=== PATIENT | male | born 1970 | race Caucasian/White ===

== ENCOUNTER 2018-06-30 05:51 | Emergency (ER) | payer OTHER ==
[2018-06-30] MEDS ORDERED: Adenosine 6 MG/2 ML SDV ONE (06:04)
[2018-06-30] MEDS ORDERED: Adenosine 12 MG/4 ML SDV ONE (06:04)
[2018-06-30] MEDS ORDERED: Adenosine 6 MG/2 ML SDV IVPUSH ONE (06:05)
[2018-06-30] MEDS ORDERED: Sodium Chloride 0.9% 1,000 ML IV ONE (06:16)
[2018-06-30] MEDS ORDERED: Metoprolol Tartrate 5 MG/5 ML SDV IVPUSH ONE ×3 (06:17→06:49)
[2018-06-30] MEDS ORDERED: Metoprolol Tartrate 5 MG/5 ML SDV ONE (06:19)
--- NOTE | 2018-06-30 06:23 | EDM.PDOC ---
<Raul Christy - Last Filed: 06/30/18 06:50> ED HPI GENERAL MEDICAL PROBLEM - General Chief Complaint: Cardiovascular Problem Stated Complaint: CHEST PAIN Time Seen by Provider: 06/30/18 06:15 Source of Information: Reports: Patient, Family History Limitations: Reports: No Limitations - History of Present Illness INITIAL COMMENTS - FREE TEXT/NARRATIVE: Patient presents with acute onset of palpitations. He had been out camping and had 4 beers last night but had also a lot of some caffeinated drinks. He woke up this morning at about midnight with palpitations. Naylor some shortness of breath when it occurred. No syncope or near-syncope. He denies any chest pain associated with it. No nausea or vomiting. The events of the palpitations would come and go. On arrival here to the department his heart rate was 240 and regular with narrow complexes. Patient blood pressure was stable and is alert and oriented 3. He denies any history of any diabetes heart problems heart murmur when he was a child or rheumatic fever. He denies illegal drug use, he does smoke cigarettes. - Related Data Allergies Allergy/AdvReac Type Severity Reaction Status Date / Time No Known Allergies Allergy Verified 06/30/18 06:06 Home Meds: Home Meds Metoprolol Succinate 25 mg PO DAILY #30 tab.er.24h 06/30/18 [Rx] Past Medical History - Past Surgical History Musculoskeletal Surgical History: Reports: Arthroscopic Knee Social & Family History - Family History Family Medical History: Noncontributory ED ROS GENERAL - Review of Systems Review Of Systems: See Below Constitutional: Reports: Diaphoresis. Denies: Fever, Chills Respiratory: Reports: Shortness of Breath. Denies: Cough Cardiovascular: Reports: Palpitations. Denies: Chest Pain, Lightheadedness GI/Abdominal: Denies: Abdominal Pain, Nausea, Vomiting Musculoskeletal: Denies: Neck Pain Neurological: Denies: Dizziness, Headache, Syncope Psychiatric: Denies: Agitation, Anxiety ED EXAM, GENERAL - Physical Exam Exam: See Below Exam Limited By: No Limitations General Appearance: Alert, WD/WN, Anxious, Mild Distress Head: Atraumatic Neck: Supple, Non-Tender. No: Carotid Bruit Respiratory/Chest: No Respiratory Distress, Lungs Clear, Normal Breath Sounds, Chest Non-Tender Cardiovascular: Normal Peripheral Pulses, No Edema, No JVD, Other (Tachycardia) GI/Abdominal: Normal Bowel Sounds, Soft, Non-Tender Extremities: Normal Inspection, No Pedal Edema Neurological: Alert, Oriented Psychiatric: Normal Affect, Normal Mood Skin Exam: Diaphoretic EKG INTERPRETATION EKG Date: 06/30/18 EKG Interpretation Comments: Initial EKG on patient's arrival shows a supraventricular tachycardia rate of 238. Baseline artifact ever noted he does have an RSR prime in lead V1, suspect some rate related depression ST depression noted in the anterior leads. Course - Vital Signs Text/Narrative:: Patient with a narrow complex tachycardia suspect supraventricular tachycardia. Initially performed vagal maneuvers and was able to get his heart rate down to 70. This probably lasted for a few minutes and we were not able to get a new lecture cardiogram. We reviewed the risks benefits alternatives to chemical cardioversion with the patient and he agreed and we gave him 6 mg of IV adenosine. We were able again to convert him to a normal sinus rhythm however this was short-lived and he is now back in a tachycardia. We'll load given a dose of metoprolol 5 mg IV. Check a chest x-ray, troponin BNP baseline labs including electrolytes. Bolus with some fluids. His blood pressure post cardioversion was 110 systolic. At this point patient does still remain stable however we'll consider whether cardioversion is indicated. I'll the onset of symptoms being at night. He denies having had anything like this in the past. Last Recorded V/S: Last Vital Signs Temp 95.5 F 06/30/18 05:59 Pulse 81 06/30/18 08:42 Resp 16 06/30/18 08:35 BP 112/67 06/30/18 08:42 Pulse Ox 99 06/30/18 08:35 - Orders/Labs/Meds Orders: Active Orders 24 hr Category Date Time Status Cardiac Monitoring [RC] . DIRECTED Care 06/30/18 06:16 Active EKG Documentation Completion [RC] ASDIRECTED Care 06/30/18 07:06 Active EKG Documentation Completion [RC] STAT Care 06/30/18 06:16 Active Chest 1V Frontal [CR] Stat Exams 06/30/18 06:16 Taken Chest PE [Ang Chest] [CT] Stat Exams 06/30/18 06:55 Taken EKG 12 Lead [EK] Stat Ther 06/30/18 06:14 Ordered Labs: Laboratory Tests 06/30/18 06/30/18 06/30/18 Range/Units 06:05 06:05 06:05 WBC 15.64 H (4.23-9.07) K/mm3 RBC 5.67 (4.63-6.08) M/mm3 Hgb 17.3 (13.7-17.5) gm/L Hct 49.9 (40.1-51.0) % MCV 88.0 (79.0-92.2) fl MCH 30.5 (25.7-32.2) pg MCHC 34.7 (32.2-35.5) g/dl RDW Std Deviation 41.7 (35.1-43.9) fL Plt Count 294 (163-337) K/mm3 MPV 10.4 (9.4-12.3) fl Neut % (Auto) 64.1 (34.0-67.9) % Lymph % (Auto) 26.5 (21.8-53.1) % [place] % (Auto) 7.0 (5.3-12.2) % Eos % (Auto) 1.7 (0.8-7.0) Baso % (Auto) 0.3 (0.1-1.2) % Neut # (Auto) 10.03 H (1.78-5.38) K/mm3 Lymph # (Auto) 4.15 H (1.32-3.57) K/mm3 [place] # (Auto) 1.09 H (0.30-0.82) K/mm3 Eos # (Auto) 0.26 (0.04-0.54) K/mm3 Baso # (Auto) 0.05 (0.01-0.08) K/mm3 Sodium 142 (136-145) mEq/L Potassium 4.1 (3.5-5.1) mEq/L Chloride 107 (98-107) mEq/L Carbon Dioxide 25 (21-32) mEq/L Anion Gap 14.1 (5-15) BUN 17 (7-18) mg/dL Creatinine 1.0 (0.7-1.3) mg/dL Est Cr Clr Drug Dosing 91.32 mL/min Estimated GFR (MDRD) > 60 (>60) mL/min BUN/Creatinine Ratio 17.0 (14-18) Glucose 126 H (74-106) mg/dL Calcium 8.7 (8.5-10.1) mg/dL Magnesium 1.8 (1.8-2.4) mg/dl Total Bilirubin 0.4 (0.2-1.0) mg/dL AST 26 (15-37) U/L ALT 54 (16-63) U/L Alkaline Phosphatase 86 (46-116) U/L Troponin I < 0.017 (0.00-0.056) ng/mL NT-Pro-B Natriuret Pep 417 H (0-125) pg/mL Total Protein 6.8 (6.4-8.2) g/dl Albumin 3.6 (3.4-5.0) g/dl Globulin 3.2 gm/dL Albumin/Globulin Ratio 1.1 (1-2) TSH 3rd Generation (0.358-3.74) uIU/mL 06/30/18 Range/Units 06:05 WBC (4.23-9.07) K/mm3 RBC (4.63-6.08) M/mm3 Hgb (13.7-17.5) gm/L Hct (40.1-51.0) % MCV (79.0-92.2) fl MCH (25.7-32.2) pg MCHC (32.2-35.5) g/dl RDW Std Deviation (35.1-43.9) fL Plt Count (163-337) K/mm3 MPV (9.4-12.3) fl Neut % (Auto) (34.0-67.9) % Lymph % (Auto) (21.8-53.1) % [place] % (Auto) (5.3-12.2) % Eos % (Auto) (0.8-7.0) Baso % (Auto) (0.1-1.2) % Neut # (Auto) (1.78-5.38) K/mm3 Lymph # (Auto) (1.32-3.57) K/mm3 [place] # (Auto) (0.30-0.82) K/mm3 Eos # (Auto) (0.04-0.54) K/mm3 Baso # (Auto) (0.01-0.08) K/mm3 Sodium (136-145) mEq/L Potassium (3.5-5.1) mEq/L Chloride (98-107) mEq/L Carbon Dioxide (21-32) mEq/L Anion Gap (5-15) BUN (7-18) mg/dL Creatinine (0.7-1.3) mg/dL Est Cr Clr Drug Dosing mL/min Estimated GFR (MDRD) (>60) mL/min BUN/Creatinine Ratio (14-18) Glucose (74-106) mg/dL Calcium (8.5-10.1) mg/dL Magnesium (1.8-2.4) mg/dl Total Bilirubin (0.2-1.0) mg/dL AST (15-37) U/L ALT (16-63) U/L Alkaline Phosphatase (46-116) U/L Troponin I (0.00-0.056) ng/mL NT-Pro-B Natriuret Pep (0-125) pg/mL Total Protein (6.4-8.2) g/dl Albumin (3.4-5.0) g/dl Globulin gm/dL Albumin/Globulin Ratio (1-2) TSH 3rd Generation 2.915 (0.358-3.74) uIU/mL Meds: Medications Discontinued Medications Generic Name Dose Route Start Last Admin Trade Name Freq PRN Reason Stop Dose Admin Adenosine Confirm 06/30/18 06:04 06/30/18 06:36 Adenocard Administered 06/30/18 06:05 Not Given Dose 6 mg .ROUTE .STK-MED ONE Adenosine Confirm 06/30/18 06:04 06/30/18 06:36 Adenocard Administered 06/30/18 06:05 Not Given Dose 12 mg .ROUTE .STK-MED ONE Adenosine 6 mg 06/30/18 06:05 06/30/18 06:10 Adenocard IVPUSH 06/30/18 06:06 6 mg NOW ONE Administration Sodium Chloride 1,000 mls @ 500 mls/hr 06/30/18 06:16 06/30/18 06:26 Normal Saline IV 06/30/18 08:15 500 mls/hr ONETIME ONE Administration Sodium Chloride 100 mls @ 60 mls/hr 06/30/18 07:30 06/30/18 07:29 Normal Saline IV 60 mls/hr ASDIRECTED JULI Administration Iopamidol 100 ml 06/30/18 07:26 06/30/18 07:29 Isovue-370 (76%) IVPUSH 06/30/18 07:27 100 ml ONETIME ONE Administration Metoprolol Tartrate 5 mg 06/30/18 06:17 06/30/18 06:23 Lopressor IVPUSH 06/30/18 06:18 5 mg ONETIME ONE Administration Metoprolol Tartrate Confirm 06/30/18 06:19 06/30/18 06:36 Lopressor Administered 06/30/18 06:20 Not Given Dose 5 mg .ROUTE .STK-MED ONE Metoprolol Tartrate 25 mg 06/30/18 06:29 06/30/18 06:38 Lopressor PO 06/30/18 06:30 Not Given ONETIME ONE Metoprolol Tartrate 5 mg 06/30/18 06:30 06/30/18 06:37 Lopressor IVPUSH 06/30/18 06:31 5 mg ONETIME ONE Administration Metoprolol Tartrate 25 mg 06/30/18 06:33 06/30/18 06:38 Lopressor PO 06/30/18 06:34 25 mg ONETIME ONE Administration Metoprolol Tartrate Confirm 06/30/18 06:32 06/30/18 06:37 Lopressor Administered 06/30/18 06:33 Not Given Dose 50 mg .ROUTE .STK-MED ONE Metoprolol Tartrate 5 mg 06/30/18 06:49 06/30/18 08:42 Lopressor IVPUSH 06/30/18 06:50 Not Given ONETIME ONE Sodium Chloride 10 ml 06/30/18 07:26 06/30/18 07:29 Saline Flush FLUSH 06/30/18 07:27 10 ml ONETIME ONE Administration - Re-Assessments/Exams Free Text/Narrative Re-Assessment/Exam: 06/30/18 06:51 Recheck evaluation these metoprolol 5 mg dose does seem to control his rate only however for short period of time. Have given him a dose of Lopressor 25 mg oral. Have now repeated a third dose of metoprolol 5 mg IV. He does show some borderline Chilo megaly and his chest x-ray, Celexa lites otherwise are normal , troponin negative, BNP is pending. Do not see any signs of acute heart failure. TSH is pending. We'll send him for CT chest angiogram rule out PE. He is not currently hypoxic or short of breath however recurrence of this supraventricular rhythm. Departure - Departure Disposition: Home, Self-Care 01 Preliminary Cause of *Q: Sepsis & Multi System Organ Failure Condition: Serious Clinical Impression: Supraventricular tachycardia, paroxysmal Prescriptions: Metoprolol Succinate 25 mg PO DAILY #30 tab.er.24h Instructions: Supraventricular Tachycardia, Adult Referrals: PCP,None [Primary Care Provider] - Lindsay Hood PA [[employer]] - 1 Week Forms: ED Department Discharge Additional Instructions: Take the metoprolol daily. You can start tomorrow. Avoid all stimulants such as caffeine or nicotine. Drink plenty of water. Try to get some rest today. Follow up with a doctor in [place] or you can follow up with Lindsay Hood in our clinic. Please return if you are worse. <Cam Adam - Last Filed: 06/30/18 13:56> ED ROS GENERAL - Review of Systems Review Of Systems: See Below ED EXAM, GENERAL - Physical Exam Exam: See Below Course - Re-Assessments/Exams Free Text/Narrative Re-Assessment/Exam: 06/30/18 08:[address] Christy. The patient's WBC was elevated at 15.64. His glucose was 126. his troponin was negative. His BNP was slightly elevated at 417. His TSH was normal. His chest angio showed no PE. He had pulmonary vascular congestion, interstitial pulmonary edema, fatty infiltration of the liver, and minimal pleural effusion. It appears he may have had some pulmonary edema and fluid from such a fast heart rate. I will need to get him on some metoprolol and have him avoid all stimulants such as caffeine and nicotine. Departure - Departure Time of Disposition: 08:30 Condition: Good
[2018-06-30] MEDS ORDERED: Metoprolol Tartrate 25 MG Tab PO ONE (06:29)
[2018-06-30] MEDS ORDERED: Metoprolol Tartrate 50 MG Tab ONE (06:32)
[2018-06-30] MEDS ORDERED: Metoprolol Tartrate 50 MG Tab PO ONE (06:33)
[2018-06-30] MEDS ORDERED: Sodium Chloride 0.9% 10 ML Syringe FLUSH ONE (07:26)
[2018-06-30] MEDS ORDERED: Iopamidol 755 Mg/ML 100 ML Bottle IVPUSH ONE (07:26)
[2018-06-30] MEDS ORDERED: Sodium Chloride 0.9% 100 ML IV SCH (07:30)
--- NOTE | 2018-07-01 14:07 | CR ---
Chest: Portable view of the chest was obtained. Comparison: No prior chest x-ray. Findings: Interstitial change is seen within the right chest. Left lung is felt to be mostly clear. Heart size accentuated from portable technique. Bony structures are unremarkable. Impression: 1. Interstitial change within the right chest. Differential includes asymmetric pulmonary vascular congestion with atelectasis versus infection. Diagnostic code #3
--- NOTE | 2018-07-01 14:07 | CT ---
CT chest Technique: Multiple axial sections through the chest were obtained. Intravenous contrast was utilized. Study has been performed as a pulmonary antrum protocol. Findings: Pulmonary arteries are well-opacified. No filling defects are seen to indicate pulmonary embolism. Slightly prominent fat within the mediastinum is seen. This is a normal variant. Small portion of the visualized upper abdominal structures are within normal limits. Incidental note of fatty infiltration within the liver. Patchy areas of increased density noted within the right chest. Slight bronchial wall thickening seen on both sides. Thickening of the septum within both lungs is noted. Impression: 1. No findings of pulmonary embolism. 2. Questionable pulmonary vascular congestion asymmetrically worse on the right side, difficult to exclude patchy areas of infection on the right side. Diagnostic code #3 I agree with preliminary report from [facility], finalized at 06/30/18, 8:59 AM Central Time
== END 2018-06-30 08:42 | disposition home or self-care (01) ==
LOC: JD.ED 05:51
DX: I47.1 Supraventricular tachycardia (principal); Z79.899 Other long term (current) drug therapy
CPT/HCPCS: 36415; 71045; 71275; 80053; 83735; 83880; 84443; 84484; 85025; 93005; 96361; 96374; 96375; 99285; A9270; J0153; J3490; J7030; J7040; J7050; Q9967; 93010